=== PATIENT | male | born 1990 | race Hispanic/Latino ===

== ENCOUNTER 2019-07-08 10:07 | Inpatient (IN) | payer SELFPAY ==
[2019-07-08 11:10] LABS: Hemoglobin 13.9 g/dL (14.0-18.0); Mean Corpuscular HGB CONC 33.9 g/dL (32.0-36.0); Mean Corpuscular Hemoglobin 29.8 pg (27.0-31.0); Mean Corpuscular Volume 87.9 fL (78.0-98.0); Mean Platelet Volume 8.5 fL (7.4-10.4); Platelet Count 305 thou/uL (130-400); RBC Distribution Width 11.9 % (11.5-14.5); Red Blood Cell (RBC) Count 4.66 mill/uL (4.70-6.10); White Blood Cell (WBC) Count 29.5 thou/uL (4.8-10.8)
[2019-07-08] MEDS ORDERED: Clindamycin/D5W 900 mg/50 ml Premix Bag ONE (11:20)
[2019-07-08] MEDS ORDERED: Adacel (T-DAP) 0.5 ML SYRINGE ONE (11:20)
[2019-07-08 11:29] LABS: ALT (SGPT) 48 U/L (8-55); AST (SGOT) 43 U/L (5-34); Albumin 3.4 g/dL (3.5-5.0); Alkaline Phosphatase 168 U/L (40-110); Anion Gap 11 mmol/L (10-20); BUN (Urea Nitrogen) 27 mg/dL (8.9-20.6); Bilirubin, Total 0.5 mg/dL (0.2-1.2); Calc. Creatinine Clearance 0 mL/min (70-130); Calcium 9.1 mg/dL (7.8-10.44); Carbon Dioxide 28 mmol/L (22-29); Chloride 94 mmol/L (98-107); Estimated GFR-MDRD 67; Globulin 4.7 g/dL (2.4-3.5); Glucose 125 mg/dL (70-105); Potassium 3.1 mmol/L (3.5-5.1); Protein, Total 8.1 g/dL (6.0-8.3); Sodium 130 mmol/L (136-145)
[2019-07-08 11:39] LABS: Band 52 % (5-11); Eosinophils 1 % (0-10); Lymphocytes 4 % (21-51); MDiff Complete? YES; Monocytes 5 % (0-10); Myelocyte 4 % (0-0); Neutrophil 31 % (42-75); Reactive Lymphocytes 3 % (0-10); Reflex for Review?? YES
[2019-07-08] MEDS ORDERED: Cefepime 2 GM VIAL ONE (11:45)
--- NOTE | 2019-07-08 11:56 | RAD ---
EXAM: XR Tib Fib Rt Leg 2 View PROVIDED CLINICAL HISTORY: Pain FINDINGS: There is no evidence for fracture or other acute osseous abnormality. Alignment appears anatomic. Radha nt spaces appear preserved. IMPRESSION: No evidence for an acute osseous abnormality. If there is persistent clinical concern, conservative m anagement and follow-up imaging advised.
--- NOTE | 2019-07-08 12:22 | ULT ---
EXAM: Right lower extremity venous Doppler PROVIDED CLINICAL HISTORY: Pain FINDINGS: Grayscale and color Doppler sonography with spectral analysis was performed of the right common femor al, femoral, popliteal, posterior tibial, greater saphenous and profunda femoral veins. The evaluated venous structures demonstrate a normal sonographic appearance. IMPRESSION: No sonographic evidence for right lower extremity deep venous thrombosis.
[2019-07-08] MEDS ORDERED: Piperacillin/Tazobactam 4.5 GM VIAL ONE (13:21)
[2019-07-08] MEDS ORDERED: Calcium Carbonate 500 MG ChewTAB PO PRN (14:16)
[2019-07-08] MEDS ORDERED: Ondansetron ODT 4 MG TAB PO PRN (14:16)
[2019-07-08] MEDS ORDERED: Ibuprofen 200 MG TAB PO PRN (14:16)
[2019-07-08] MEDS ORDERED: Ondansetron PF 4 MG/2 ML Vial IVP PRN (14:16)
[2019-07-08] MEDS ORDERED: Senokot S 8.6-50 MG TAB PO PRN (14:16)
[2019-07-08] MEDS ORDERED: Ketorolac Tromethamine 30 MG/ML VIAL IVP PRN (14:16)
[2019-07-08] MEDS ORDERED: cloNIDine 0.1 MG TAB PO PRN (14:19)
[2019-07-08 15:18] LABS: Hemoglobin A1c 5.3 % (4.0-6.0)
[2019-07-08] MEDS ORDERED: Lorazepam 1 MG TAB PO PRN (15:22)
[2019-07-08 15:27] VITALS: BMI 25.8
[2019-07-08] MEDS: NS 0.9% w/ 20 MEQ KCL 1,000 ML/1,000 ML BAG IV SCH (16:52)
[2019-07-08] MEDS: Piperacillin/Tazobactam 3.375 GM in Sodium Chloride 0.9% 100 ML IVPB SCH (16:53)
[2019-07-08] MEDS: Ketorolac Tromethamine 30 MG/ML VIAL IVP SCH (16:53)
[2019-07-08] MEDS ORDERED: Potassium Chloride 20 MEQ TAB PO SCH (17:00)
--- NOTE | 2019-07-08 17:16 | HP ---
PRIMARY CARE PHYSICIAN: Kaity Fernandes. CHIEF COMPLAINT: Right lower extremity swelling of 4 days duration. HISTORY OF PRESENT ILLNESS: The patient is a 28-year-old male, who presented to the emergency room with above complaints. Over the last 4 to 5 days, the patient noticed significant erythema along with tenderness and swelling of the right leg. He later developed blistering. He had [id number] pain in that extremity. He also felt feverish. He denies recent immobilization travel. No injuries reported. He was seen at the clinic 2 days ago and was started on Bactrim double strength along with fluconazole due to tinea infection of the toes. However, his swelling, redness, and pain progressively got worse, for which he presented to the emergency room. In the emergency room, his initial vital signs showed temperature 99, respirations 20, pulse of 103 with blood pressure of 122/78, with O2 saturation 99% on room air. Right lower extremity Doppler was negative for DVT. His WBC count was 29.5 with 52% bandemia. His CRP was 31.21. He received vancomycin and Zosyn with IV fluids. He also received a tetanus toxoid. PAST MEDICAL HISTORY: Reviewed with the patient and none. PAST SURGICAL HISTORY: Reviewed with the patient and none. ALLERGIES: NO KNOWN DRUG ALLERGIES. CURRENT HOME MEDICATIONS: Reviewed with the patient and none. SOCIAL HISTORY: The patient drinks 8 to 12 pack every other day. He denies any drug use. No smoking. Lives at home with his family. FAMILY HISTORY: Negative for heart disease or malignancy. REVIEW OF SYSTEMS: All other review of systems was reviewed and were found negative. PHYSICAL EXAMINATION: VITAL SIGNS: As discussed above. GENERAL: A 28-year-old male in mild distress due to pain in the right lower extremity. HEENT: Head, atraumatic and normocephalic. Sclerae are anicteric. Moist mucous membrane. No oral lesion. NECK: Supple. No JVD. No carotid bruit. LUNGS: Clear to auscultation bilaterally. No wheezing, rales, or rhonchi. HEART: S1 and S2 present. Regular rate and rhythm. No rubs or gallops. ABDOMEN: Soft and nontender. Bowel sounds present. EXTREMITIES: There is significant swelling of the right lower extremity along with warmth and tenderness. There is also a vesicular lesion present without any drainage. PERIPHERAL VASCULAR: Radial and dorsalis pedis pulses were palpable and equal. SKIN: As discussed above. LYMPH NODE: No palpable lymph nodes in the neck. I was unable to palpate lymph nodes in the groin. PSYCHIATRY: Alert, awake, and oriented x3. NEUROLOGIC: Grossly nonfocal. Moves all 4 extremities. LABORATORY FINDINGS: Sodium 130, potassium 3.1, chloride 94, BUN 27, and creatinine 1.29. CRP 31.2. Hemoglobin 13.9 with WBC 29.5 with 52% bandemia. IMAGING STUDIES: X-ray of the tibia-fibula by my review was negative for acute findings. There was no gas appreciated. Right lower extremity Doppler was negative for DVT. IMPRESSION: 1. Sepsis secondary to right lower extremity cellulitis. 2. Hyponatremia. 3. Hypokalemia. 4. Dehydration. 5. Elevated inflammatory markers. 6. Chronic alcoholism. 7. Mild protein-calorie malnutrition. 8. Chronic anemia. 9. Tinea pedis. PLAN: The patient will be admitted to the medical floor. He failed outpatient antibiotic treatment. He will be started on vancomycin and Zosyn. We will also add clindamycin for now. Consult Infectious Disease. Consult Wound Care. Right lower extremity elevation. Pain controlled. IV fluids. Replace electrolytes. We will add fluconazole for tinea infection. We will add alcohol withdrawal protocol. Plan of care was discussed with the patient in detail, he stated understanding. Job ID: [id number]
[2019-07-08] MEDS: Famotidine 20 MG TAB PO SCH (20:29)
[2019-07-08] MEDS: Vancomycin HCl 1 GM in Premix Bag 1 BAG IVPB SCH (20:29)
[2019-07-08] MEDS: Saccharomyces boulardii 250 MG CAP PO SCH (20:29)
[2019-07-08] MEDS: Clotrimazole 1 % Cream 30 GM TUBE TOP SCH (20:30)
[2019-07-08] MEDS: Acetaminophen 325 MG TAB PO PRN (20:37)
[2019-07-08] MEDS: Clindamycin/D5W 600 MG in Premix Bag 1 BAG IVPB SCH (20:40)
[2019-07-08] MEDS ORDERED: Clotrimazole 1% Cream 15 GM TUBE TOP SCH (21:00)
[2019-07-09] MEDS: NS 0.9% w/ 20 MEQ KCL 1,000 ML/1,000 ML BAG IV SCH ×4 (00:04→20:31)
[2019-07-09] MEDS: Vancomycin HCl 1 GM in Premix Bag 1 BAG IVPB SCH (04:35)
[2019-07-09] MEDS: Ketorolac Tromethamine 30 MG/ML VIAL IVP SCH ×4 (05:34→18:10)
[2019-07-09] MEDS: Piperacillin/Tazobactam 3.375 GM in Sodium Chloride 0.9% 100 ML IVPB SCH ×3 (05:35→11:38)
[2019-07-09] MEDS: Clindamycin/D5W 600 MG in Premix Bag 1 BAG IVPB SCH ×3 (05:35→21:57)
[2019-07-09 06:58] LABS: ALT (SGPT) 61 U/L (8-55); AST (SGOT) 50 U/L (5-34); Albumin 2.4 g/dL (3.5-5.0); Alkaline Phosphatase 174 U/L (40-110); Anion Gap 11 mmol/L (10-20); BUN (Urea Nitrogen) 17 mg/dL (8.9-20.6); Bilirubin, Total 0.4 mg/dL (0.2-1.2); Calc. Creatinine Clearance 129 mL/min (70-130); Calcium 7.8 mg/dL (7.8-10.44); Carbon Dioxide 22 mmol/L (22-29); Chloride 105 mmol/L (98-107); Estimated GFR-MDRD Greater than 90; Globulin 3.9 g/dL (2.4-3.5); Glucose 117 mg/dL (70-105); Potassium 3.7 mmol/L (3.5-5.1); Protein, Total 6.3 g/dL (6.0-8.3); Sodium 134 mmol/L (136-145)
[2019-07-09 08:17] LABS: Band 25 % (5-11); Eosinophils 1 % (0-10); Hemoglobin 12.3 g/dL (14.0-18.0); Lymphocytes 14 % (21-51); MDiff Complete? YES; Mean Corpuscular Hemoglobin 29.9 pg (27.0-31.0); Mean Corpuscular Volume 87.9 fL (78.0-98.0); Mean Platelet Volume 8.2 fL (7.4-10.4); Metamyelocyte 4 % (0-0); Monocytes 8 % (0-10); Neutrophil 48 % (42-75); Platelet Count 315 thou/uL (130-400); RBC Distribution Width 12.1 % (11.5-14.5); Red Blood Cell (RBC) Count 4.13 mill/uL (4.70-6.10); Toxic Granulation SLIGHT; Vacuoles SLIGHT; White Blood Cell (WBC) Count 26.2 thou/uL (4.8-10.8)
[2019-07-09] MEDS ORDERED: FLU VACC QS2019-20(6MOS UP)/PF 60 MCG/0.5 ML SYRINGE IM ONE (09:00)
[2019-07-09] MEDS: Fluconazole 100 MG TAB PO SCH (09:06)
[2019-07-09] MEDS: Clotrimazole 1 % Cream 30 GM TUBE TOP SCH ×2 (09:06→20:35)
[2019-07-09] MEDS: Enoxaparin Sodium 40 MG/0.4 ML SYRINGE SC SCH (09:06)
[2019-07-09] MEDS: Multivit, Therapeutic 1 TAB PO SCH (09:06)
[2019-07-09] MEDS: Thiamine 100 MG TAB PO SCH (09:06)
[2019-07-09] MEDS: Folic Acid 1 MG TAB PO SCH (09:06)
[2019-07-09] MEDS: Famotidine 20 MG TAB PO SCH ×2 (09:06→20:31)
--- NOTE | 2019-07-09 11:51 | PDOC.HOSPP ---
- Subjective Encounter Date: 07/09/19 Encounter Time: 09:30 Subjective: Patient seen and examined for Sepsis. RLE cellulitis. RLE pain improving. No new complaints. No overnight events - Objective Vital Signs & Weight: Vital Signs (12 hours) Temp Pulse Resp BP BP Pulse Ox 07/09/19 11:09 98.4 F 84 16 110/72 96 07/09/19 07:36 98.7 F 81 16 97/59 L 96 07/09/19 04:00 98.6 F 78 18 94/56 L 94/56 L 97 07/09/19 00:00 98.2 F 79 18 100/60 100/60 95 Weight Weight 164 lb 14.492 oz I&O: 07/08/19 07/09/19 07/10/19 06:59 06:59 06:59 Intake Total 1375 Balance 1375 Result Diagrams: 07/09/19 06:20 07/09/19 06:20 Radiology Reviewed by me: No (Doppler - Neg) Hospitalist ROS - Review of Systems Respiratory: denies: cough, dry, shortness of breath, hemoptysis, SOB with excertion, pleuritic pain, sputum, wheezing, other Cardiovascular: denies: chest pain, palpitations, orthopnea, paroxysmal noc. dyspnea, edema, light headedness, other Gastrointestinal: denies: nausea, vomiting, abdominal pain, diarrhea, constipation, melena, hematochezia, other - Medication Medications: Active Medications Generic Name Dose Route Start Last Admin Trade Name Freq PRN Reason Stop Dose Admin Acetaminophen 650 mg 07/08/19 14:16 07/08/19 20:37 Tylenol PO 650 mg Q4H PRN Administration Headache/Fever/Mild Pain (1-3) Clotrimazole 0 gm 07/08/19 21:00 07/09/19 09:06 Lotrimin 1% Cream TOP 1 applic BID HEVER Administration Enoxaparin Sodium 40 mg 07/09/19 09:00 07/09/19 09:06 Lovenox SC 40 mg 0900 HEVER Administration Famotidine 20 mg 07/08/19 21:00 07/09/19 09:06 Pepcid PO 20 mg BID HEVER Administration Fluconazole 100 mg 07/09/19 09:00 07/09/19 09:06 Diflucan PO 100 mg DAILY HEVER Administration Folic Acid 1 mg 07/09/19 09:00 07/09/19 09:06 Folvite PO 1 mg DAILY HEVER Administration Potassium Chloride/Sodium Chloride 1,000 ml in 1,000 mls @ 125 mls/hr 14:15 07/09/19 05:39 Ns 0.9% W/ 20 Meq Kcl IV 1,000 mls .Q8H HEVER Administration Vancomycin HCl 1 gm/ Device 200 mls @ 200 mls/hr 07/08/19 21:00 07/09/19 04: 35 IVPB 200 mls 0500,1300,2100 HEVER Administration Piperacillin Sod/Tazobactam 100 mls @ 200 mls/hr 07/08/19 18:00 07/09/19 11: 38 Sod 3.375 gm/ Sodium Chloride IVPB 100 mls Q6HR HEVER Administration Clindamycin Phosphate/Dextrose 50 mls @ 100 mls/hr 07/08/19 22:00 07/09/19 05 :35 600 mg/ Device IVPB 50 mls Q8HR HEVER Administration Ketorolac Tromethamine 15 mg 07/08/19 18:00 07/09/19 11:37 Toradol IVP 07/10/19 18:01 15 mg Q6HR HEVER Administration Multivitamins 1 tab 07/09/19 09:00 07/09/19 09:06 Theragran PO 1 tab DAILY HEVER Administration Saccharomyces Boulardii 250 mg 07/08/19 21:00 07/08/19 20:29 Florastor PO 250 mg HS HEVER Administration Thiamine HCl 100 mg 07/09/19 09:00 07/09/19 09:06 Thiamine PO 100 mg DAILY HEVER Administration - Exam General Appearance: NAD Heart: RRR, no gallops, no rubs, normal peripheral pulses Respiratory: no wheezes, no rales, no ronchi, normal chest expansion Gastrointestinal: soft, non-tender, non-distended, normal bowel sounds Extremities: 2+ LE edema (RLE) Neurological: no new deficit Psychiatric: normal affect, A&O x 3 Hosp A/P - Plan DVT proph w/SCDs 1. Sepsis secondary to right lower extremity cellulitis. 2. Hyponatremia. 3. Hypokalemia. 4. Dehydration. 5. Elevated inflammatory markers. 6. Chronic alcoholism. 7. Mild protein-calorie malnutrition. 8. Chronic anemia. 9. Tinea pedis. PLAN: Cont IV Vancomycin/Zosyn/Clindamycin Wound care input appreciated Await ID input Cont ASE protocol Cont other meds as above
[2019-07-09 12:39] LABS: Vancomycin, Trough 6.1 ug/mL
[2019-07-09] MEDS ORDERED: Vancomycin 1.5 GRAM/300 ML BAG 1.5 GM in Premix Bag 1 BAG IVPB SCH (13:00)
[2019-07-09] MEDS: cefTRIAXone\\ROCEPHIN 1 GM in Sodium Chloride 0.9% 100 ML IVPB SCH (13:39)
--- NOTE | 2019-07-09 13:45 | CON ---
DATE OF CONSULTATION: REASON FOR CONSULTATION: Cellulitis of right leg. HISTORY OF PRESENT ILLNESS: A 28-year-old with no past medical history, who developed fairly sudden onset of inflammatory changes to right leg with blistering, neutrophilia, and a left shift. The patient was admitted and started on broad-spectrum coverage. He is currently awake and alert. Mild to moderate pain in the right leg, somewhat out of proportion with the intensity of the inflammatory changes. No headaches, visual symptoms, sore throat, odynophagia, dysphagia. No cough or sputum production. No dyspnea. No back pain. No abdominal pain or diarrhea. No genitourinary symptoms. No joint symptoms. PAST MEDICAL HISTORY: Negative. SURGICAL HISTORY: Negative. SOCIAL HISTORY: Drinks weekly. 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 Not . No smoking. ALLERGIES: NONE. MEDICATIONS: Had been on ketoconazole for feet eruption. PHYSICAL EXAMINATION: VITAL SIGNS: Temperature has been normal and vital signs were with essentially normal findings. SKIN: Shows extensive circumferential erythema involving the entire lower extremity, [id number] area with blistering, which is scattered throughout the legs. No lymphadenopathy. HEENT: Exam is normal. NECK: Supple. LUNGS: Symmetric. Clear breath sounds. HEART: S1 and S2, regular rate. No S3 or S4. ABDOMEN: Soft. Not distended or tender. No ascites. No bladder distention. EXTREMITIES: No joint inflammatory activity. Pulses are excellent. Lower extremities; he is able to move extremities with limitations imposed by inflammatory process. Cognitive function appears to be intact. LABORATORY DATA: Sodium 130 and 134. Creatinine is 1.29 and 0.91. Magnesium 3.2. AST 43, ALT 50 and 61. Alkaline phosphatase 168. CRP 31, albumin 3.4. Vancomycin trough is 6.1. White cell count 29.5 and 26.2. Bands were 52% down to 25%. Microbiology with negative blood cultures thus far. Tibia-fibula x-ray and duplex ultrasound venous, normal. ASSESSMENT AND PLAN: Acute cellulitis right lower extremity with blistering, likely due to beta-hemolytic Streptococcus, probably group A strep. The precipitating event, probably this dermatitis in lower extremities, which is related to his boot wear during work. He sweats a lot in his lower extremities and feet. Staphylococcus aureus/MRSA is not likely. Discontinue vancomycin. Discontinue Zosyn and switch him to Rocephin. Continue clindamycin for now. Submit cultures from the blisters. Check hepatitis serology, HIV, RPR. Job ID: [id number]
[2019-07-09 15:24] LABS: Syphilis Antibody Nonreactive (Nonreactive); Syphilis Antibody Index 0.05 S/CO (<1.00 Non-Reactive)
[2019-07-09 15:26] LABS: HBSAB Concentration 4.01 mIU/mL; HBSAg Index 0.19 S/CO (0-0.99); HIV (1/2) Antibody/Antigen Non-Reactive (NonReactive); HIV 1/2 INDEX 0.09 S/CO (<1.00); Hep B Surf AB Non-Reactive (NonReactive); Hep B Surf Ag Non-Reactive S/CO (NonReactive); Hep C IgG Ab Non-Reactive (NonReactive); Hep C Index 0.06 S/CO (0-0.79)
[2019-07-09] MEDS: Loratadine 10 MG TAB PO SCH (20:31)
[2019-07-09] MEDS: Saccharomyces boulardii 250 MG CAP PO SCH (20:31)
[2019-07-09] MEDS: Acetaminophen 325 MG TAB PO PRN (21:58)
[2019-07-10] MEDS: Ketorolac Tromethamine 30 MG/ML VIAL IVP SCH ×4 (00:15→17:47)
[2019-07-10] MEDS: NS 0.9% w/ 20 MEQ KCL 1,000 ML/1,000 ML BAG IV SCH ×2 (05:02→15:05)
[2019-07-10] MEDS: Clindamycin/D5W 600 MG in Premix Bag 1 BAG IVPB SCH ×3 (05:02→21:20)
[2019-07-10 07:20] LABS: Hemoglobin 11.9 g/dL (14.0-18.0); Mean Corpuscular HGB CONC 33.4 g/dL (32.0-36.0); Mean Corpuscular Hemoglobin 29.7 pg (27.0-31.0); Mean Platelet Volume 7.9 fL (7.4-10.4); Platelet Count 343 thou/uL (130-400); RBC Distribution Width 12.5 % (11.5-14.5); Red Blood Cell (RBC) Count 4.01 mill/uL (4.70-6.10)
[2019-07-10 07:37] LABS: ALT (SGPT) 55 U/L (8-55); AST (SGOT) 32 U/L (5-34); Albumin 2.3 g/dL (3.5-5.0); Alkaline Phosphatase 148 U/L (40-110); Anion Gap 9 mmol/L (10-20); BUN (Urea Nitrogen) 12 mg/dL (8.9-20.6); Bilirubin, Total 0.4 mg/dL (0.2-1.2); Calc. Creatinine Clearance 152 mL/min (70-130); Calcium 7.9 mg/dL (7.8-10.44); Carbon Dioxide 22 mmol/L (22-29); Chloride 107 mmol/L (98-107); Estimated GFR-MDRD Greater than 90; Glucose 102 mg/dL (70-105); Potassium 3.7 mmol/L (3.5-5.1); Protein, Total 6.3 g/dL (6.0-8.3); Sodium 134 mmol/L (136-145)
[2019-07-10 08:18] LABS: Band 26 % (5-11); Eosinophils 1 % (0-10); Lymphocytes 8 % (21-51); MDiff Complete? YES; Metamyelocyte 3 % (0-0); Monocytes 9 % (0-10); Myelocyte 3 % (0-0); Neutrophil 49 % (42-75); Platelet Morphology Comment Appears Adequate; Polychromasia SLIGHT = 2-3 cells (100X) (0-2/hpf); Reactive Lymphocytes 1 % (0-10)
[2019-07-10] MEDS: Clotrimazole 1 % Cream 30 GM TUBE TOP SCH ×2 (08:26→21:23)
[2019-07-10] MEDS: Folic Acid 1 MG TAB PO SCH (08:26)
[2019-07-10] MEDS: Famotidine 20 MG TAB PO SCH ×2 (08:27→21:20)
[2019-07-10] MEDS: Enoxaparin Sodium 40 MG/0.4 ML SYRINGE SC SCH (08:27)
[2019-07-10] MEDS: Fluconazole 100 MG TAB PO SCH (08:27)
[2019-07-10] MEDS: Multivit, Therapeutic 1 TAB PO SCH (08:27)
[2019-07-10] MEDS: Thiamine 100 MG TAB PO SCH (08:27)
[2019-07-10] MEDS ORDERED: Magnevist 469MG/ML 20 ML VIAL ONE (11:39)
[2019-07-10] MEDS: cefTRIAXone\\ROCEPHIN 1 GM in Sodium Chloride 0.9% 100 ML IVPB SCH (15:05)
[2019-07-10] MEDS: Acetaminophen 325 MG TAB PO PRN (16:17)
[2019-07-10] MEDS ORDERED: Ibuprofen 200 MG TAB PO SCH (17:30)
[2019-07-10] MEDS: MEROPENEM 1 GM/50 ML 1 GM in Premix Bag 1 BAG IVPB SCH (17:40)
[2019-07-10] MEDS: Loratadine 10 MG TAB PO SCH (21:20)
[2019-07-10] MEDS: Saccharomyces boulardii 250 MG CAP PO SCH (21:20)
[2019-07-10] MEDS ORDERED: Ibuprofen 200 MG TAB PO PRN (23:59)
[2019-07-11] MEDS: MEROPENEM 1 GM/50 ML 1 GM in Premix Bag 1 BAG IVPB SCH ×3 (00:10→16:29)
[2019-07-11] MEDS: NS 0.9% w/ 20 MEQ KCL 1,000 ML/1,000 ML BAG IV SCH ×4 (00:11→13:59)
[2019-07-11] MEDS: Acetaminophen 325 MG TAB PO PRN (00:12)
[2019-07-11] MEDS: Clindamycin/D5W 600 MG in Premix Bag 1 BAG IVPB SCH ×3 (05:01→21:02)
[2019-07-11 05:57] LABS: ALT (SGPT) 92 U/L (8-55); AST (SGOT) 63 U/L (5-34); Albumin 2.6 g/dL (3.5-5.0); Alkaline Phosphatase 156 U/L (40-110); Anion Gap 10 mmol/L (10-20); BUN (Urea Nitrogen) 8 mg/dL (8.9-20.6); Bilirubin, Total 0.5 mg/dL (0.2-1.2); Calc. Creatinine Clearance 145 mL/min (70-130); Calcium 8.2 mg/dL (7.8-10.44); Carbon Dioxide 25 mmol/L (22-29); Chloride 105 mmol/L (98-107); Estimated GFR-MDRD Greater than 90; Globulin 4.6 g/dL (2.4-3.5); Glucose 99 mg/dL (70-105); Potassium 4.6 mmol/L (3.5-5.1); Protein, Total 7.2 g/dL (6.0-8.3); Sodium 135 mmol/L (136-145)
[2019-07-11 06:27] LABS: Band 10 % (5-11); Eosinophils 2 % (0-10); Lymphocytes 13 % (21-51); MDiff Complete? YES; Mean Corpuscular Hemoglobin 30.3 pg (27.0-31.0); Mean Corpuscular Volume 89.2 fL (78.0-98.0); Mean Platelet Volume 7.5 fL (7.4-10.4); Monocytes 7 % (0-10); Neutrophil 68 % (42-75); Platelet Count 423 thou/uL (130-400); RBC Distribution Width 12.5 % (11.5-14.5); Red Blood Cell (RBC) Count 4.28 mill/uL (4.70-6.10); White Blood Cell (WBC) Count 25.3 thou/uL (4.8-10.8)
--- NOTE | 2019-07-11 07:27 | PDOC.HOSPP ---
- Subjective Encounter Date: 07/10/19 Encounter Time: 16:30 Subjective: Patient seen and examined for Sepsis/RLE Cellulitis. Pain controlled. Intermittent fever upto 103 per RN. No new complaints. No overnight events - Objective Vital Signs & Weight: Vital Signs (12 hours) Temp Pulse Resp BP BP Pulse Ox 07/11/19 04:00 100.0 F H 89 18 119/77 119/77 96 07/11/19 00:00 100.9 F H 96 18 115/77 115/77 93 L 07/10/19 20:00 98.8 F 84 18 108/70 108/70 94 L Weight Admit Weight 164 lb 14.4 oz Weight 164 lb 14.4 oz I&O: 07/10/19 07/11/19 07/12/19 06:59 06:59 06:59 Intake Total 1250 1375 Balance 1250 1375 Result Diagrams: 07/11/19 05:16 07/11/19 05:16 Hospitalist ROS - Review of Systems Respiratory: denies: cough, dry, shortness of breath, hemoptysis, SOB with excertion, pleuritic pain, sputum, wheezing, other Cardiovascular: denies: chest pain, palpitations, orthopnea, paroxysmal noc. dyspnea, edema, light headedness, other - Medication Medications: Active Medications Generic Name Dose Route Start Last Admin Trade Name Freq PRN Reason Stop Dose Admin Acetaminophen 650 mg 07/08/19 14:16 07/11/19 00:12 Tylenol PO 650 mg Q4H PRN Administration Headache/Fever/Mild Pain (1-3) Clotrimazole 0 gm 07/08/19 21:00 07/10/19 21:23 Lotrimin 1% Cream TOP 1 applic BID HEVER Administration Enoxaparin Sodium 40 mg 07/09/19 09:00 07/10/19 08:27 Lovenox SC 40 mg 0900 HEVER Administration Famotidine 20 mg 07/08/19 21:00 07/10/19 21:20 Pepcid PO 20 mg BID HEVER Administration Fluconazole 100 mg 07/09/19 09:00 07/10/19 08:27 Diflucan PO 100 mg DAILY HEVER Administration Folic Acid 1 mg 07/09/19 09:00 07/10/19 08:26 Folvite PO 1 mg DAILY HEVER Administration Potassium Chloride/Sodium Chloride 1,000 ml in 1,000 mls @ 125 mls/hr 14:15 07/11/19 00:11 Ns 0.9% W/ 20 Meq Kcl IV 1,000 mls .Q8H HEVER Administration Clindamycin Phosphate/Dextrose 50 mls @ 100 mls/hr 07/08/19 22:00 07/11/19 05 :01 600 mg/ Device IVPB 50 mls Q8HR HEVER Administration Meropenem 1 gm/ Device 50 mls @ 200 mls/hr 07/10/19 17:00 07/11/19 00:10 IVPB 50 mls 0100,0900,1700 HEVER Administration Ibuprofen 400 mg 07/10/19 23:59 07/11/19 05:01 Motrin PO 400 mg Q6H PRN Administration Pain Loratadine 10 mg 07/09/19 21:00 07/10/19 21:20 Claritin PO 10 mg HS HEVER Administration Multivitamins 1 tab 07/09/19 09:00 07/10/19 08:27 Theragran PO 1 tab DAILY HEVER Administration Saccharomyces Boulardii 250 mg 07/08/19 21:00 07/10/19 21:20 Florastor PO 250 mg HS HEVER Administration Thiamine HCl 100 mg 07/09/19 09:00 07/10/19 08:27 Thiamine PO 100 mg DAILY HEVER Administration - Exam General Appearance: NAD Heart: RRR, no gallops Respiratory: CTAB, no rales Gastrointestinal: soft, non-distended Extremities: 2+ LE edema (RLE - improving erythema) Hosp A/P - Plan DVT proph w/SCDs 1. Sepsis secondary to right lower extremity cellulitis. 2. Hyponatremia. 3. Hypokalemia. 4. Dehydration. 5. Elevated inflammatory markers. 6. Chronic alcoholism - on ASE protocol 7. Mild protein-calorie malnutrition. 8. Chronic anemia. 9. Tinea pedis - on Clotrimazole PLAN: Cont IV Clindamycin Rocephin changed to Meropenem MRI RLE per ID DC Fluconazole Cont Wound care Cont ASE protocol with Ativan Ambulate Cont other meds as above
--- NOTE | 2019-07-11 07:58 | MRI ---
EXAM: MRI of the right foreleg with and without IV contrast DATE: 07/10/2019 4:27 PM INDICATION: Concern for cellulitis and fasciitis of the right foreleg COMPARISON: None. FINDING: Contrast: 15 cc of MultiHance. There is extensive subcutaneous edema seen circumferentially about the foreleg extending from the ank le through the level of the lower knee. There is a nonenhancing subcutaneous fluid collection seen involving the anterior aspect of the mid right foreleg measuring 7.9 x 16.7 cm in its greatest mediol ateral and AP dimensions respectively and is suspicious for large region of phlegmon or early abscess. Additionally, there is abnormal fluid seen within the interfascial regions of the anterior, posterior and lateral compartments of the foreleg with enhancement consistent with fasciitis. There is abnormal increased T2 signal with enhancement involving the anterior compartment foreleg musculatu re as well as the medial aspect of the soleus muscle consistent with myositis. No abnormal signal is seen involving the bones of the foreleg. IMPRESSION: 1. Extensive myofascitis of the right foreleg with circumferential cellulitis of the right foreleg. T here is additionally a very large subcutaneous fluid collection involving the anterior mid right foreleg suspicious for phlegmon or early abscess. 2. Findings were called to Dr. Baum's answering service at 7:50 AM on 07/11/2019.
[2019-07-11] MEDS: Multivit, Therapeutic 1 TAB PO SCH (08:37)
[2019-07-11] MEDS: Folic Acid 1 MG TAB PO SCH (08:38)
[2019-07-11] MEDS: Famotidine 20 MG TAB PO SCH ×2 (08:38→21:02)
[2019-07-11] MEDS: Clotrimazole 1 % Cream 30 GM TUBE TOP SCH ×2 (08:38→21:12)
[2019-07-11] MEDS: Thiamine 100 MG TAB PO SCH (08:38)
[2019-07-11] MEDS: Enoxaparin Sodium 40 MG/0.4 ML SYRINGE SC SCH (08:38)
--- NOTE | 2019-07-11 09:04 | PRG ---
DATE OF SERVICE: 07/11/2019 SUBJECTIVE: The patient was seen and examined at the bedside. He has some pain in his right lower extremity and not much though. His appetite is fair. He does not have much complaints to offer. OBJECTIVE: VITAL SIGNS: Blood pressure is 119/79, pulse is 88, temperature is 97.7, maximal temperature is 103 last night, respirations 20, and O2 saturation is 96% on room air. HEENT: His head is atraumatic and normocephalic. Eyes are PERRLA. Sclerae are nonicteric. Oral mucosa is moist. NECK: Supple. LUNGS: Clear. HEART: S1, S2 normal. ABDOMEN: Soft, nontender, nondistended. EXTREMITIES: Right leg is wrapped with some visible swelling above the dressing. NEUROLOGIC: He is alert and oriented x4. There is no any motor or sensory deficits. LABORATORY DATA: Labs showed white count of 25.3, hemoglobin 13.0, hematocrit 38.2, platelet count is 423,000. Sodium 135, potassium 4.6, chloride 105, CO2 of 25, BUN 8, creatinine 0.81. AST 63, ALT 92, and alkaline phosphatase 156. Albumin 2.6, globulin 4.6. Microbiology, skin Gram stain showed no organisms since, few WBCs and rare epithelial cells. MRI of the lower extremity done yesterday showed extensive myofasciitis of the right foreleg with some circumferential cellulitis of the right foreleg, a very large subcutaneous fluid collection involving the anterior mid right foreleg suspicious for phlegmon or early abscess. IMPRESSION: 1. Right leg cellulitis with possible abscess. We will call General Surgery and keep him n.p.o. for possible intervention this morning. 2. Sepsis secondary to right lower extremity cellulitis. 3. Hyponatremia. 4. Hypokalemia. 5. Dehydration. 6. Elevated inflammatory markers. 7. Chronic alcoholism. 8. Chronic anemia. PLAN: Plan is to continue his clindamycin and meropenem. The patient was seen by Dr. Baum who recommends a change. We will contact Dr. June, who is on-call today for General Surgery and he will have to have probably procedure today. Job ID: [id number]
[2019-07-11] MEDS ORDERED: Ibuprofen 600 MG TAB PO PRN (09:32)
[2019-07-11] MEDS ORDERED: traMADol HCl 50 MG TAB PO PRN (09:32)
[2019-07-11] MEDS ORDERED: PROPOFOL 200 MG/20 ML VIAL ONE (09:45)
[2019-07-11] MEDS ORDERED: Succinylcholine Chloride 20 MG/ML 10 ml SYRINGE FS ONE (09:45)
[2019-07-11] MEDS ORDERED: Lidocaine 1% PF 5 ML VIAL ONE (09:45)
--- NOTE | 2019-07-11 09:51 | CON ---
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 He has been hospitalized since 07/08/2019. Today is Wednesday, and last Wednesday he woke up with pain in his leg, mostly below the knee. It progressed down to his foot. He developed blisters over his medial upper leg, medial lower leg, and lateral lower leg and foot. He has progressive persistent cellulitis. He has been admitted and vascular ultrasound and tibia-fibula x-ray obtained are unremarkable. There is no evidence of DVT. He subsequently underwent an MRI yesterday, 07/10/2019. Right lower extremity MRI reveals extensive myofasciitis of the right foreleg with circumferential cellulitis of the right foreleg. There is a very large subcutaneous fluid collection involving the anterior mid right foreleg suspicious for phlegmon or early abscess. I have been asked to see him regarding incision and drainage. ALLERGIES: NONE. TOBACCO: None. ALCOHOL: Socially. MEDICATIONS: None routinely. PAST SURGICAL HISTORY: Noncontributory. PAST MEDICAL HISTORY: Noncontributory. SOCIAL HISTORY: The patient does drink 8 to 12 pack of beer every other day. The patient lives with his family. PHYSICAL EXAMINATION: VITAL SIGNS: Height 5 foot 7 inches, 164 pounds, 25 of BMI, temperature 97.7, pulse 88, blood pressure 119/79. HEAD, EARS, EYES, NOSE, AND THROAT: Unremarkable. LUNGS: Clear to auscultation. CARDIAC: Regular rate and rhythm without murmur or gallop. ABDOMEN: Soft and nontender. EXTREMITIES: Palpable femoral, popliteal, dorsalis pedis pulses bilaterally. The patient has severe cellulitis from beneath his right knee involving his entire foot. There is pitting edema. There is blistering as described. Blisters were removed. There was clear serous fluid. There is no palpable abscess noted. ASSESSMENT AND PLAN: Right leg cellulitis infection, refractory to medical management. I would recommend operative intervention due to MRI findings. He understands risks and benefits, understands he will open wounds. We will plan this afternoon. He ate breakfast at 6:00 a.m. and we will plan this early afternoon. Job ID: [id number]
[2019-07-11] MEDS: Acetaminophen 500 MG TAB PO PRN (12:22)
[2019-07-11] MEDS: traMADol HCl 50 MG TAB PO PRN (12:27)
[2019-07-11] MEDS ORDERED: Lidocaine 1% w/Epinephrine 1:100K 20 ML VIAL ONE (13:54)
[2019-07-11] MEDS ORDERED: Bupivacaine 0.25% HCL 30 ML VIAL ONE (13:54)
[2019-07-11] MEDS ORDERED: Fentanyl 250 MCG/5 ML VIAL ONE (13:59)
[2019-07-11] MEDS ORDERED: Promethazine HCl 25 MG/ML VIAL SLOW IVP PRN (15:09)
[2019-07-11] MEDS ORDERED: Morphine Sulfate 2 MG/ML SYRINGE SLOW IVP PRN (15:09)
[2019-07-11] MEDS ORDERED: Meperidine HCl/PF 25 MG/ML VIAL SLOW IVP PRN (15:09)
[2019-07-11] MEDS ORDERED: HYDROmorphone 2 MG/ML VIAL SLOW IVP PRN (15:09)
--- NOTE | 2019-07-11 16:38 | PRG ---
DATE OF SERVICE: 07/11/2019 SUBJECTIVE: The patient had exploration with fasciotomies, but there was no evidence of necrosis and no purulence. No significant surgical debridement was necessary. Despite the MRI findings, just kind of a cloudy fluid was identified. He is not having much pain again, somewhat significant discrepancy from the clinical findings. No headaches, shortness of breath, or abdominal pain. No diarrhea. He is still with the intermittent temperature elevation, the latest one is 101.3 at around 12 o'clock, but that was right after the surgical intervention. Other vital signs are not remarkable. OBJECTIVE: VITAL SIGNS: O2 saturation 93. GENERAL: Awake, alert, and oriented. HEENT: Somewhat pale. Ocular movements conjugate. Oral cavity normal. LUNGS: Clear. HEART: S1 and S2. Regular rate. ABDOMEN: Soft, not distended or tender. EXTREMITIES: Right leg with dressing, which was not removed. LABORATORY DATA: White cell count 25.3, hemoglobin 13, and platelets 423. Sodium 135, creatinine 0.81, AST 63, ALT 92, and alkaline phosphatase 156. HIV nonreactive. Microbiology with pending skin cultures. ASSESSMENT AND DISCUSSION: Severe cellulitis, likely there is streptococcal or it could be a gram-negative zoraida since he is exposed to water inside boots, so for example Aeromonas or Pseudomonas aeruginosa is possible. Continue meropenem and vancomycin for now and wound management. He will likely stay in the hospital for at least another 3 to 4 days. Job ID: [id number]
[2019-07-11] MEDS: Saccharomyces boulardii 250 MG CAP PO SCH (21:02)
[2019-07-11] MEDS: Loratadine 10 MG TAB PO SCH (21:02)
[2019-07-12] MEDS: MEROPENEM 1 GM/50 ML 1 GM in Premix Bag 1 BAG IVPB SCH ×3 (00:27→17:24)
[2019-07-12] MEDS: Clindamycin/D5W 600 MG in Premix Bag 1 BAG IVPB SCH ×3 (05:14→21:02)
--- NOTE | 2019-07-12 07:02 | OP ---
DATE OF PROCEDURE: 07/11/2019 PREOPERATIVE DIAGNOSIS: Right leg infection. MRI suggests deep fluid myositis. POSTOPERATIVE DIAGNOSIS: Right leg infection. MRI suggests deep fluid myositis with edema fluid. No purulent material. PROCEDURE: Incision and drainage, right leg with short incision was made anteromedial and anterolateral of proximal leg, anteromedial and anterolateral of distal leg and over the dorsum of the foot, carried down to skin, subcutaneous tissue, and fascia. There was only edema fluid. No purulent discharge. This cultures were submitted, but they would be of questionable value. Wounds packed open for healing secondarily. The patient tolerated the procedure well. Wound Care will assume wound care tomorrow. Job ID: [id number]
[2019-07-12] MEDS: traMADol HCl 50 MG TAB PO PRN ×3 (08:09→21:06)
[2019-07-12] MEDS: Multivit, Therapeutic 1 TAB PO SCH (08:52)
[2019-07-12] MEDS: Thiamine 100 MG TAB PO SCH (08:52)
[2019-07-12] MEDS: Enoxaparin Sodium 40 MG/0.4 ML SYRINGE SC SCH (08:53)
[2019-07-12] MEDS: Folic Acid 1 MG TAB PO SCH (08:53)
[2019-07-12] MEDS: Famotidine 20 MG TAB PO SCH ×2 (08:53→21:02)
[2019-07-12] MEDS: Clotrimazole 1 % Cream 30 GM TUBE TOP SCH ×2 (08:56→21:38)
--- NOTE | 2019-07-12 09:17 | PRG ---
DATE OF SERVICE: 07/12/2019 Nasir Benitez is doing well today. He had incision and drainage of 4 areas of his right leg proximal, anterior, lateral, and anteromedial and distal anterolateral/medial above the ankle and dorsum of the foot with findings of clear fluid without pus. Wounds were opened down to the fascia. There was no purulent drainage. Culture submitted, although they probably will not disclose anything. This morning, his wounds are stable. His cellulitis has markedly improved. Edema has improved. In my opinion, the patient can be discharged home on oral antibiotics and I have communicated same to Dr. Viveros and Dr. Baum. Dr. Baum replied that he should be on oral Keflex. The patient's daily wound care should consist of removing his dressings, washing the wounds with soap and water in the bath or shower, washing the open wounds with soap and water and applying normal saline gauze, wet-to-dry dressings. Wound Care will demonstrate, educate him on this. Wound care supplies can be given him. I will see him as needed in this hospitalization, please call if necessary. There are appointment and discharge plans for followup in my office next week. The patient should be capable of caring for his own wounds on a daily basis. Job ID: [id number]
--- NOTE | 2019-07-12 09:49 | PRG ---
DATE OF SERVICE: 07/12/2019 SUBJECTIVE: The patient is seen and examined at bedside. He just had his shower, and his right lower extremity is exposed. On further examination, he does not have much complaints to offer except for some discomfort in this right lower [id number] area. OBJECTIVE: VITAL SIGNS: Blood pressure is 113/74, pulse is 77, temperature is 98.4, respiratory rate is 18, O2 saturation 96% on room air. HEENT: His head is atraumatic and normocephalic. Eyes are PERRLA. Sclerae are nonicteric. Oral mucosa is moist. NECK: Supple. LUNGS: Clear. HEART: S1 and S2 are normal. ABDOMEN: Soft and nontender. EXTREMITIES: Right lower extremity is still very swollen, and there are several open areas from surgical exploration and debridement done yesterday oozing blood. NEUROLOGIC: He is alert and oriented x4. There are no any motor deficits. LABORATORY DATA: Pending. MICROBIOLOGY: No new findings. IMPRESSION: 1. Right lower extremity myofasciitis, status post debridement. 2. Sepsis secondary to right lower extremity cellulitis. 3. Hyponatremia. 4. Hypokalemia. 5. Dehydration. 6. Chronic alcoholism. 7. Chronic anemia. PLAN: Plan is to continue his current regimen. He will be switched to Cipro and Keflex and go home in the next, most likely, 24 hours. Job ID: [id number]
[2019-07-12 12:44] LABS: Mean Corpuscular HGB CONC 34.7 g/dL (32.0-36.0); Mean Corpuscular Volume 89.4 fL (78.0-98.0); Mean Platelet Volume 7.4 fL (7.4-10.4); Platelet Count 457 thou/uL (130-400); RBC Distribution Width 12.2 % (11.5-14.5); Red Blood Cell (RBC) Count 3.87 mill/uL (4.70-6.10)
[2019-07-12 13:16] LABS: Lymphocytes 6 % (21-51); MDiff Complete? YES; Monocytes 5 % (0-10); Neutrophil 89 % (42-75); Platelet Morphology Comment Appears Increased
[2019-07-12] MEDS: Saccharomyces boulardii 250 MG CAP PO SCH (21:02)
[2019-07-12] MEDS: Loratadine 10 MG TAB PO SCH (21:02)
[2019-07-12] MEDS: Acetaminophen 500 MG TAB PO PRN (21:06)
[2019-07-13] MEDS: MEROPENEM 1 GM/50 ML 1 GM in Premix Bag 1 BAG IVPB SCH ×2 (01:21→08:05)
[2019-07-13] MEDS: Clindamycin/D5W 600 MG in Premix Bag 1 BAG IVPB SCH (05:11)
[2019-07-13 07:35] VITALS: BP 112/74; TEMP 98.4
[2019-07-13] MEDS: traMADol HCl 50 MG TAB PO PRN (08:03)
[2019-07-13] MEDS: Enoxaparin Sodium 40 MG/0.4 ML SYRINGE SC SCH (08:04)
[2019-07-13] MEDS: Famotidine 20 MG TAB PO SCH (08:04)
[2019-07-13] MEDS: Clotrimazole 1 % Cream 30 GM TUBE TOP SCH (08:04)
[2019-07-13] MEDS: Thiamine 100 MG TAB PO SCH (08:04)
[2019-07-13] MEDS: Multivit, Therapeutic 1 TAB PO SCH (08:04)
[2019-07-13] MEDS: Folic Acid 1 MG TAB PO SCH (08:04)
[2019-07-13 08:10] LABS: #Basophils 0.1 thou/uL (0.0-0.2); #Eosinphils 0.1 thou/uL (0.0-0.7); #Lymphocytes 4.6 thou/uL (1.20-3.40); #Monocytes 1.2 thou/uL (0.11-0.59); #Neutrophils 10.7 thou/uL (1.40-6.50); %Basophils 0.6 % (0.0-1.0); %Eosinophils 0.7 % (0.0-10.0); %Lymphocytes 27.5 % (21.0-51.0); %Monocytes 7.4 % (0.0-10.0); %Neutrophils 63.9 % (42.0-75.0); Hemoglobin 13.7 g/dL (14.0-18.0); Mean Corpuscular HGB CONC 32.1 g/dL (32.0-36.0); Mean Corpuscular Hemoglobin 29.5 pg (27.0-31.0); Mean Platelet Volume 7.3 fL (7.4-10.4); Platelet Count 597 thou/uL (130-400); RBC Distribution Width 12.5 % (11.5-14.5); Red Blood Cell (RBC) Count 4.62 mill/uL (4.70-6.10); White Blood Cell (WBC) Count 16.8 thou/uL (4.8-10.8)
--- NOTE | 2019-07-13 13:39 | DIS ---
DATE OF ADMISSION: 07/08/2019 DATE OF DISCHARGE: 07/13/2019 CONSULTANTS: Dr. Ritchie June, General Surgery. PROCEDURE PERFORMED: On 07/11/2019, Dr. Ritchie June, incision and drainage of the right leg with short incision in several areas. No purulent discharge was found. DISCHARGE IMPRESSION: 1. Severe cellulitis of the right lower extremity, most likely streptococcal or gram-negative rods, status post incision. 2. Sepsis secondary to right lower extremity cellulitis. 3. Hyponatremia, improved. 4. Hypokalemia, improved. 5. Dehydration, resolved. 6. Chronic alcoholism. 7. Chronic anemia. HOSPITAL COURSE: The patient is a 28-year-old male, who was admitted to the hospital with right lower extremity swelling for 4 days. Apparently, he noticed significant erythema along with tenderness and swelling of the right leg 4-5 days ago and later he developed blistering. He had [id number] pain in that extremity. He became feverish. He did not report any injury and apparently, he was seen at the clinic 2 days ago and was started on Bactrim Double Strength along with fluconazole due to tinea infection of the toes. However, his swelling, redness, and pain progressively got worse to the point that he presented to the emergency room. While in the emergency room, his temperature was 99, pulse was 103, blood pressure was 122/78, he was saturating 99% on room air, and his right lower extremity Doppler showed no DVT. White count was elevated at 29.5 with 52% of bandemia. CRP was 31.21. He received vancomycin and Zosyn with IV fluids, and he also received tetanus toxoid. At the time of emergency room evaluation, his sodium was 130, potassium 3.1, chloride 94, BUN 27, creatinine 1.29, CRP 31.2, hemoglobin 13.9, white blood cells bandemia 52%, white count was 29.5. Imaging showed a tibia-fibula x-ray, negative for acute findings. There was no gas appreciated. The patient was admitted with working diagnosis of sepsis secondary to right lower extremity cellulitis and failure of outpatient antibiotic therapy. Vancomycin and Zosyn were continued after they were started in the emergency room and clindamycin was added. Infectious Diseases consult was requested and Wound Care consult was requested too. Right lower extremity elevation was performed and the pain was controlled. He was continued on IV fluids and his electrolytes were replaced. He was continued on Diflucan for tinea infection. Subsequently, he was seen by Dr. Baum, who recommended discontinue vancomycin and Zosyn, switch to Rocephin, continue clindamycin, submit cultures from the blisters, check hepatitis serology, HIV, and RPR. Microbiology showed no organisms seen, few WBCs, and rare epithelial cells. There was no growth in 4 days after several days of incubation. Subsequently, the patient was seen by Dr. June, who did incision and drainage after the patient had alarming results of his lower extremity MRI which showed extensive myofasciitis of the right foreleg with circumferential cellulitis of the right foreleg and very large subcutaneous fluid collection involving the anterior mid right foreleg suspicious for phlegmon or early abscess, but during the procedure, Dr. June did not find any abscess or fluid collection. He opened several areas. There was no purulent discharge, but the discharge was sent to the microbiology for cultures which showed no growth, and Gram stain showed no epithelial cells and few WBCs and no organisms were seen on the Gram stain. The patient did well. Today, his blood pressure is 112/74, O2 saturation is 93% on room air, temperature 98.4, pulse is 79, and respirations 18. He is seen and examined before his discharge. He looks good. His right lower extremity is wrapped with dressing. He was seen by Wound Care team during this hospitalization. He is supposed to have dressing changed every day and he is aware of that. He is discharged to home on a regular diet. He is supposed to elevate his leg and follow up with primary care physician in [address] June, the surgeon, on July 20 at 11:30. He is going to follow up with [facility] in [place]. DISCHARGE MEDICATIONS: 1. Keflex 500 mg 3 times a day for 14 days. 2. Cipro 500 mg twice a day for 14 days. 3. Folic acid 1 mg once a day. 4. Multivitamin 1 a day. 5. Saccharomyces boulardii 250 mg at bedtime. 6. Tramadol 50 mg q.i.d. p.r.n. as needed for the pain. TIME SPENT: Time spent on this discharge is less than 30 minutes. Job ID: [id number]
[2019-07-13] MEDS ORDERED: Ibuprofen 200 MG TAB PO PRN (14:18)
== END 2019-07-13 11:57 | disposition home or self-care (01) | DRG 872 ==
LOC: ERS 10:07 → T4-B 14:49
PROVIDERS: ADMIT Internal Medicine; ATTEND Internal Medicine
PROC: 3E0234Z Introduction of Serum, Toxoid and Vaccine into Muscle, Percutaneous Approach (ICD-10-PCS; 2019-07-08)
PROC: 0J9N3ZZ Drainage of Right Lower Leg Subcutaneous Tissue and Fascia, Percutaneous Approach (ICD-10-PCS; principal; 2019-07-11)
DX: A41.9 Sepsis, unspecified organism (principal); L03.115 Cellulitis of right lower limb; E87.1 Hypo-osmolality and hyponatremia; E44.1 Mild protein-calorie malnutrition; E87.6 Hypokalemia; E86.0 Dehydration; F10.20 Alcohol dependence, uncomplicated; D64.9 Anemia, unspecified; B35.3 Tinea pedis; Z23 Encounter for immunization; Z68.25 Body mass index [BMI] 25.0-25.9, adult
CPT/HCPCS: 36415; 80053; 80202; 83036; 83605; 83735; 85007; 85025; 85027; 85060; 86140; 86706; 86780; 86803; 87040; 87070; 87086; 87205; 87340; 87389; 90471; 90686; 90715; 96365; 96367; A9579; G0008; J0692; J0696; J1650; J1885; J2001; J2185; J2543; J2704; J3010; J3370; J3480; J3490; S0020